=== PATIENT | male | born 1990 | race Caucasian/White ===

== ENCOUNTER 2018-01-23 20:40 | Emergency (ER) | payer OTHER ==
[~2018-01-23] VITALS: Ht 170.2 cm; Wt 72.6 kg
[~2018-01-23 20:40] MED LIST: IBUPROFEN 800800 M1 PO; MEDROL DOSPAK21 TAB PO
[2018-01-23] MEDS ORDERED: ROBAXIN500 MG PO (21:32)
[2018-01-23 21:48] VITALS: BP 105/64
== END 2018-01-23 21:49 | disposition home or self-care (01) ==
LOC: M.ERS 20:40
DX: S46.811A Strain of other muscles, fascia and tendons at shoulder and upper arm level, right arm, initial encounter (principal); F17.200 Nicotine dependence, unspecified, uncomplicated; V00.138A Other skateboard accident, initial encounter; Y93.51 Activity, roller skating (inline) and skateboarding; Y92.89 Other specified places as the place of occurrence of the external cause; Y99.8 Other external cause status